=== PATIENT | female | born 1970 | race Caucasian/White ===

== ENCOUNTER 2022-05-11 22:21 | Emergency (ER) | payer OTHER ==
[~2022-05-11] VITALS: Ht 157.5 cm; Wt 67.6 kg
--- NOTE | 2022-05-11 22:32 | NUR ---
PT HERE FOR SUDDEN ONSET SWELLING TO RT ANKLE, PT STATED STARTED 2 HRS AGO PRIOR TO ER ARRIVAL. PT DENIES TRAUMA. SHE STATED SHE FEELS BURNING SENSATION TO RT LEG. PER PT SHE WAS COVID POSITIVE 2 WKS AGO. PMh:FIBROMYALGIA, ASTHMA PT AAOX4, NO SOB NOTED AT THIS TIME, AMBULATED WITH STEADY TO RM5. PT ENDORSED TO ANNIKA CORONADO
--- NOTE | 2022-05-11 22:35 | NUR ---
Patient BIB from home for c/o sudden onset of right ankle swelling x1 day with burning sensation on right ankle and pain level of 3/10. Patient reports cough x2 weeks. Patient reports hx of asthma and fibromyalgia. Patient reports recent hx of positive Covid 19 testing x2 weeks ago; testing negative on 05/09/22. Patient A/Ox4, VSS, ambulatory, resp even and unlabored. Patient able to demonstrate proper body mechanics without assistance. NAD noted at this time.
--- NOTE | 2022-05-11 22:41 | NUR ---
GUILLE Ramsay at bedside.
--- NOTE | 2022-05-11 23:40 | NUR ---
Lab at bedside
--- NOTE | 2022-05-11 23:45 | NUR ---
Ultrasound at bedside.
--- NOTE | 2022-05-11 23:48 | NUR ---
Patient resting comfortably in bed with side rails raised. Patient's at bedside. Nad noted at this time.
[2022-05-11 23:57] LABS: BASOPHILS % (AUTO) 0.2 % (0.0-2.0); EOSINOPHILS % (AUTO) 0.1 % (0.0-4.0); HEMATOCRIT 32.6 % (36-48); HEMOGLOBIN 11.1 g/dL (12.0-16.0); LYMPHOCYTES % (AUTO) 23.3 % (20.5-51.5); MEAN CORPUSCULAR HEMOGLOBIN 26 pg (27-31); MEAN CORPUSCULAR HGB CONC 34 % (32-36); MEAN CORPUSCULAR VOLUME 77 fL (79.0-98.0); MONOCYTES # (AUTO) 0.3 K/uL (0.0-1.0); MONOCYTES % (AUTO) 7.8 % (1.7-9.3); NEUTROPHILS % (AUTO) 68.6 % (40.0-70.0); PLATELET COUNT (AUTO) 116 K/uL (130-430); RED BLOOD CELL COUNT(AUTO) 4.23 MIL/uL (4.2-6.2); RED CELL DISTRIBUTION WIDTH 13.7 % (9.0-15.0); WHITE BLOOD COUNT (AUTO) 4.4 K/uL (4.8-10.8)
[2022-05-12 00:07] LABS: ANION GAP 4 (5-15); CALCIUM 8.8 mg/dL (8.4-11.0); CHLORIDE 103 mmol/L (98-107); CREATININE 0.69 mg/dL (0.55-1.30); GLUCOSE 107 mg/dL (70-99); POTASSIUM 3.5 mmol/L (3.5-5.1); SODIUM SERUM 138 mmol/L (136-145); UREA NITROGEN, BLOOD 14 mg/dL (8-21)
[2022-05-12 00:08] LABS: GFR AFRICAN AMERICAN 116 mL/min (>90)
[2022-05-12 00:22] LABS: ALANINE AMINOTRANSFERASE 12 U/L (12-78); ALBUMIN 3.1 g/dL (3.4-4.8); ASPARTATE AMINOTRANSFERASE 9 U/L (10-37); THYROID STIMULATING HORMONE 0.13 uIu/mL (0.36-3.74); TOTAL BILIRUBIN < 0.1 mg/dL (0.0-1.0)
--- NOTE | 2022-05-12 02:00 | NUR ---
Patient sleeping in bed with side rails raised. Nad noted at this time.
[2022-05-12 03:35] VITALS: BP_SYST 106
--- NOTE | 2022-05-12 03:35 | NUR ---
Patient given written and verbal discharge instructions and verbalizes understanding. ER MD discussed with patient the results and treatment provided. Patient in stable condition. ID arm band removed. Patient educated on pain management and to follow up with PMD. Pain Scale 2/10. Opportunity for questions provided and answered.Patient A/Ox4, resp even and unlabored, ambulatory, VSS. Nad noted at this time.
== END 2022-05-12 03:35 | disposition home or self-care (01) ==
LOC: SED 22:21
DX: R22.41 Localized swelling, mass and lump, right lower limb (principal); Z79.899 Other long term (current) drug therapy
CPT/HCPCS: 36415; 80053; 83880; 84443; 85025; 93971; 99284